=== PATIENT | female | born 1960 | race Caucasian/White ===

== ENCOUNTER 2016-10-11 11:21 | Emergency (ER) | payer BC ==
[~2016-10-11] VITALS: Ht 157.5 cm; Wt 58.2 kg
[~2016-10-11 11:21] MED LIST: ASPIR-TRIN325 M1 PO; AUGMENTIN500 MG PO; Azor 10/40 mg PO; BENICAR20 MG PO; BLOOD PRESSURE MED; BYSTOLIC5 MG PO; Benicar PO; CYMBALTA30 MG PO; DAILY VITAMIN1 EAC4 PO; DAILY VITAMIN1 EAC8 PO; DURAGESIC12 MICROGR; DURAGESIC12 MICROGR TD; Dilaudid PO; ENDOCET 5-3251 EACH PO; FIORICET; Habitrol,Nicoderm CQ TD; LUNESTA PO; LYRICA100 MG; LYRICA100 MG PO; Librium PO; Lunesta PO; NEURONTIN100 MG PO; NEXIUM40 MG PO; NIFEDICAL XL30 MG; PEPCID PO; PLAVIX75 MG PO; PREDNISONE10 MG PO; PRILOSEC20 MG PO; PROMETHAZINE HC25 M1 PO; PROTONIX40 MG PO; PROVENTIL HFA6.7 GM IH; Percocet 5/325,Endoc PO; Percocet 7.5/325,End PO; Prevacid PO; Prilosec PO; Procardia XL,Adalat PO; Protonix PO; ROBITUSSIN AC,T10 ML PO; THERAGRAN1 TABLET PO; THIAMINE,VITAM100 MG PO; Thiamine,Vitamin B1 PO; VITAMIN B-1100 MG PO; [UNRECOGNIZED DRUG - REMARK]
[2016-10-11 12:24] LABS: HEMATOCRIT 39.4 % (36.0-46.0); MCH 31.8 PG (29.0-34.0); MCHC 33.2 G/DL (30.0-36.0); MCV 95.6 FL (83-99); MEAN PLAT.VOLUME 9.8 uM^3 (9.5-12.4); PLATELET COUNT 193 K/uL (156-360); RBC DIS.WIDTH-CV 13.5 % (11.8-14.6); RBC DIS.WIDTH-SD 47.2 % (39-53); RED BLOOD COUNT 4.12 M/uL (3.80-5.20); WHITE BLOOD COUNT 6.4 K/uL (4.1-10.2)
[2016-10-11 12:40] LABS: CHLORIDE 110 mEq/L (99-109); POTASSIUM 3.2 mEq/L (3.7-5.4); SODIUM 139 mEq/L (136-147)
[2016-10-11 12:41] LABS: GLUCOSE 94 mg/dL (70-99)
[2016-10-11 12:43] LABS: ANION GAP 12 MEQ/L (2-14)
[2016-10-11 12:45] LABS: GFR ESTIMATE (CALCULATED) > 59 mL/min/
[2016-10-11 12:46] LABS: UREA NITROGEN (BUN) 21 mg/dL (9-23)
[2016-10-11 12:47] LABS: TROP-I INTERPRETATION NEGATIVE; TROPONIN-I < 0.01 ng/mL (0.0-0.30)
[2016-10-11 13:31] LABS: ALKALINE PHOSPHATASE 79 IU/L (3-129)
[2016-10-11 13:34] LABS: LIPASE 85 U/L (1.0-51.0)
[2016-10-11] MEDS ORDERED: DOXYCYCLINE HY100 M3 PO (13:54)
[2016-10-11 15:19] VITALS: BP 130/90
[2016-10-11] MEDS ORDERED: PROMETHAZINE HC25 M1 PO (22:35)
[2016-10-12] MEDS ORDERED: PROMETHAZINE HC25 M1 PO (18:29)
== END 2016-10-11 14:59 | disposition home or self-care (01) ==
LOC: EME 11:21
DX: J44.0 Chronic obstructive pulmonary disease with (acute) lower respiratory infection (principal); J20.9 Acute bronchitis, unspecified; A69.20 Lyme disease, unspecified; I10 Essential (primary) hypertension; K21.9 Gastro-esophageal reflux disease without esophagitis; Z86.73 Personal history of transient ischemic attack (TIA), and cerebral infarction without residual deficits; F17.200 Nicotine dependence, unspecified, uncomplicated
CPT/HCPCS: 71020; 80048; 83690; 84075; 84450; 84460; 84484; 85027; 93005; 99281; 99285

== ENCOUNTER 2016-10-11 19:40 | Emergency (ER) | payer BC ==
[~2016-10-11] VITALS: Ht 157.5 cm; Wt 57.3 kg
[~2016-10-11 19:40] MED LIST changes: +DOXYCYCLINE HY100 M3 PO
[2016-10-11] MEDS ORDERED: PROMETHAZINE HC25 M1 PO (22:35)
[2016-10-11 22:48] VITALS: BP 125/97
[2016-10-12] MEDS ORDERED: PROMETHAZINE HC25 M1 PO (18:29)
== END 2016-10-11 22:49 | disposition home or self-care (01) ==
LOC: EME 19:40
DX: R11.2 Nausea with vomiting, unspecified (principal); A69.20 Lyme disease, unspecified; I10 Essential (primary) hypertension; J44.9 Chronic obstructive pulmonary disease, unspecified; K21.9 Gastro-esophageal reflux disease without esophagitis; I73.00 Raynaud's syndrome without gangrene; Z86.73 Personal history of transient ischemic attack (TIA), and cerebral infarction without residual deficits; F17.200 Nicotine dependence, unspecified, uncomplicated
CPT/HCPCS: 99281; 99284; J2550

== ENCOUNTER 2016-10-12 07:53 | Observation (INO) | payer BC ==
[~2016-10-12] VITALS: Ht 152.4 cm; Wt 58.0 kg
[2016-10-12 08:50] LABS: MCH 32.1 PG (29.0-34.0); MCHC 33.9 G/DL (30.0-36.0); MCV 94.7 FL (83-99); MEAN PLAT.VOLUME 10.2 uM^3 (9.5-12.4); PLATELET COUNT 212 K/uL (156-360); RBC DIS.WIDTH-CV 13.5 % (11.8-14.6); RBC DIS.WIDTH-SD 46.8 % (39-53); RED BLOOD COUNT 4.33 M/uL (3.80-5.20); WHITE BLOOD COUNT 8.4 K/uL (4.1-10.2)
[2016-10-12 09:04] LABS: CHLORIDE 100 mEq/L (99-109); POTASSIUM 3.8 mEq/L (3.7-5.4); SODIUM 139 mEq/L (136-147)
[2016-10-12 09:06] LABS: GLUCOSE 122 mg/dL (70-99); TROP-I INTERPRETATION NEGATIVE; TROPONIN-I < 0.01 ng/mL (0.0-0.30)
[2016-10-12 09:08] LABS: ANION GAP 21 MEQ/L (2-14)
[2016-10-12 09:10] LABS: GFR ESTIMATE (CALCULATED) 55 mL/min/
[2016-10-12 09:11] LABS: UREA NITROGEN (BUN) 24 mg/dL (9-23)
[2016-10-12 10:53] LABS: LIPASE 136 U/L (1.0-51.0)
[2016-10-12 11:02] VITALS: BP 159/92
[2016-10-12 15:40] VITALS: BP 115/74
[2016-10-12 15:40] LABS: TROP-I INTERPRETATION NEGATIVE; TROPONIN-I 0.01 ng/mL (0.0-0.30)
[2016-10-12 16:51] VITALS: BP 109/92
[2016-10-12 16:56] VITALS: BP 109/92
[2016-10-12] MEDS ORDERED: PROMETHAZINE HC25 M1 PO (18:29)
[2016-10-12 18:41] VITALS: BP 118/70
[2016-10-12 21:30] LABS: TROP-I INTERPRETATION NEGATIVE; TROPONIN-I 0.01 ng/mL (0.0-0.30)
[2016-10-12 23:49] VITALS: BP 149/91
[2016-10-13 03:18] VITALS: BP 134/88
[2016-10-13 06:20] LABS: ANION GAP 12 MEQ/L (2-14); CHLORIDE 98 MEQ/L (99-109); GFR ESTIMATE (CALCULATED) > 59 mL/min/; GLUCOSE 102 mg/dL (70-99); POTASSIUM 2.7 MEQ/L (3.7-5.4); SAMPLE HEMOLYSIS CHECK 0; SAMPLE ICTERIC CHECK 0; SAMPLE LIPEMIA CHECK 0; SODIUM 137 MEQ/L (136-147); UREA NITROGEN (BUN) 10 mg/dL (9-23)
[2016-10-13 06:27] VITALS: BP 161/102
[2016-10-13 10:27] LABS: MAGNESIUM 1.1 mg/dl (1.3-2.7)
[2016-10-13 10:31] VITALS: BP 121/75
[2016-10-13] MEDS ORDERED: PREDNISONE20 MG PO (11:19)
[2016-10-13] MEDS ORDERED: BYSTOLIC5 MG PO (11:20)
[2016-10-13] MEDS ORDERED: PROVENTIL HFA6.7 GM IH (11:22)
[2016-10-13] MEDS ORDERED: LIPITOR40 MG PO (11:50)
== END 2016-10-13 12:49 | disposition home or self-care (01) ==
LOC: EME 07:53 → EDOF 10:11 → 5WEST 10:11 → EDOF 10:11 → 5WEST 10:53
PROVIDERS: Internal Medicine
DX: R07.9 Chest pain, unspecified (principal); J44.1 Chronic obstructive pulmonary disease with (acute) exacerbation; F10.20 Alcohol dependence, uncomplicated; F17.210 Nicotine dependence, cigarettes, uncomplicated; I10 Essential (primary) hypertension; K21.9 Gastro-esophageal reflux disease without esophagitis; Z86.73 Personal history of transient ischemic attack (TIA), and cerebral infarction without residual deficits; R00.0 Tachycardia, unspecified; R10.13 Epigastric pain; R11.2 Nausea with vomiting, unspecified
CPT/HCPCS: 71020; 71275; 80048; 83690; 83735; 84484; 85027; 93005; 94640; 99281; 99284; C9113; G0378; J2405; J2765; J2930; J7030; J7042

== ENCOUNTER 2017-01-07 15:30 | Inpatient (IN) | payer BC ==
[~2017-01-07 15:30] MED LIST changes: +LIPITOR40 MG PO; +PREDNISONE20 MG PO
[2017-01-07 18:33] VITALS: BP 98/57
[2017-01-07 19:35] LABS: HEMATOCRIT 32.5 % (36.0-46.0); MCH 33.1 PG (29.0-34.0); MCHC 31.7 G/DL (30.0-36.0); MCV 104.5 FL (83-99); MEAN PLAT.VOLUME 10.1 uM^3 (9.5-12.4); PLATELET COUNT 188 K/uL (156-360); RBC DIS.WIDTH-CV 15.7 % (11.8-14.6); RBC DIS.WIDTH-SD 60.4 % (39-53); RED BLOOD COUNT 3.11 M/uL (3.80-5.20); WHITE BLOOD COUNT 5.9 K/uL (4.1-10.2)
[2017-01-07 19:40] LABS: ADD MIUA? NO; BILIRUBIN NEGATIVE; BLOOD NEGATIVE; COLOR YELLOW ((YELLOW)); GLUCOSE (STRIP) NEGATIVE; KETONES NEGATIVE; LEUKOCYTES NEGATIVE; NITRITE NEGATIVE; PROTEIN (STRIP) NEGATIVE; SPECIFIC GRAVITY 1.021 (1.000-1.030); UCUL ADDED? NO; UROBILINOGEN 0.2 MG/DL (0.2-1.0)
[2017-01-07 21:40] LABS: ALKALINE PHOSPHATASE 86 IU/L (3-129); ANION GAP 8 MEQ/L (2-14); CHLORIDE 112 MEQ/L (99-109); GFR ESTIMATE (CALCULATED) 38 mL/min/; GLUCOSE 107 mg/dL (70-99); POTASSIUM 4.3 MEQ/L (3.7-5.4); SAMPLE HEMOLYSIS CHECK 0; SAMPLE ICTERIC CHECK 0; SAMPLE LIPEMIA CHECK 0; SODIUM 137 MEQ/L (136-147); TOTAL BILIRUBIN 0.3 MG/DL (0.0-1.0); UREA NITROGEN (BUN) 29 mg/dL (9-23)
[2017-01-07 23:27] VITALS: BP 100/55
[2017-01-08 03:47] VITALS: BP 105/71
[2017-01-08 06:10] LABS: HEMATOCRIT 31.6 % (36.0-46.0); MCH 32.6 PG (29.0-34.0); MCHC 31.3 G/DL (30.0-36.0); MCV 103.9 FL (83-99); PLATELET COUNT 150 K/uL (156-360); RBC DIS.WIDTH-CV 15.7 % (11.8-14.6); RBC DIS.WIDTH-SD 60.1 % (39-53); RED BLOOD COUNT 3.04 M/uL (3.80-5.20); WHITE BLOOD COUNT 3.7 K/uL (4.1-10.2)
[2017-01-08 06:36] LABS: ALKALINE PHOSPHATASE 79 IU/L (3-129); AMYLASE 65 IU/L (1-118); ANION GAP 9 MEQ/L (2-14); CHLORIDE 116 MEQ/L (99-109); GFR ESTIMATE (CALCULATED) 45 mL/min/; GLUCOSE 120 mg/dL (70-99); LIPASE 224 U/L (1.0-51.0); POTASSIUM 4.2 MEQ/L (3.7-5.4); SAMPLE HEMOLYSIS CHECK 0; SAMPLE ICTERIC CHECK 0; SAMPLE LIPEMIA CHECK 0; SODIUM 140 MEQ/L (136-147); TOTAL BILIRUBIN 0.3 MG/DL (0.0-1.0); UREA NITROGEN (BUN) 27 mg/dL (9-23)
[2017-01-08 07:14] VITALS: BP 99/68
[2017-01-08 15:34] VITALS: BP 101/65
[2017-01-08 21:53] VITALS: BP 99/60
[2017-01-09 07:40] VITALS: BP 130/84
[2017-01-09 15:30] VITALS: BP 123/83
[2017-01-09 23:31] VITALS: BP 111/62
[2017-01-10 07:30] VITALS: BP 129/76
[2017-01-10 07:41] LABS: HEMATOCRIT 29.8 % (36.0-46.0); MCH 33.1 PG (29.0-34.0); MCHC 31.9 G/DL (30.0-36.0); MCV 103.8 FL (83-99); MEAN PLAT.VOLUME 10.7 uM^3 (9.5-12.4); PLATELET COUNT 136 K/uL (156-360); RBC DIS.WIDTH-CV 15.2 % (11.8-14.6); RBC DIS.WIDTH-SD 57.7 % (39-53); RED BLOOD COUNT 2.87 M/uL (3.80-5.20); WHITE BLOOD COUNT 4.3 K/uL (4.1-10.2)
[2017-01-10 08:15] LABS: ALKALINE PHOSPHATASE 74 IU/L (3-129); AMYLASE 65 IU/L (1-118); ANION GAP 7 MEQ/L (2-14); CHLORIDE 115 MEQ/L (99-109); GLUCOSE 103 mg/dL (70-99); LIPASE 174 U/L (1.0-51.0); POTASSIUM 4.5 MEQ/L (3.7-5.4); SAMPLE HEMOLYSIS CHECK 0; SAMPLE ICTERIC CHECK 0; SAMPLE LIPEMIA CHECK 0; SODIUM 143 MEQ/L (136-147)
[2017-01-10 08:26] LABS: GFR ESTIMATE (CALCULATED) > 59 mL/min/; TOTAL BILIRUBIN 0.4 MG/DL (0.0-1.0); UREA NITROGEN (BUN) 7 mg/dL (9-23)
[2017-01-10 15:20] VITALS: BP 142/70
[2017-01-11] VITALS: BP 143/88
[2017-01-11 06:32] LABS: EOSINOPHIL (%) 2.2 % (0-5); EOSINOPHIL COUNT 0.1 K/uL (0-0.3); HEMATOCRIT 30.7 % (36.0-46.0); IMMATURE GRANULOCYTE (%) 0.3 % (0.0-0.7); INSTRUMENT ABS NEUTROPHIL CT 2.1 K/uL; LYMPHOCYTE COUNT 0.9 K/uL (1.0-2.8); MCH 32.3 PG (29.0-34.0); MCHC 31.6 G/DL (30.0-36.0); MCV 102.3 FL (83-99); MEAN PLAT.VOLUME 10.3 uM^3 (9.5-12.4); MONOCYTE (%) 16.1 % (3-12); MONOCYTE COUNT 0.6 K/uL (0-0.8); NEUTROPHIL COUNT 2.1 K/uL (1.8-6.4); PLATELET COUNT 154 K/uL (156-360); RBC DIS.WIDTH-CV 14.9 % (11.8-14.6); RBC DIS.WIDTH-SD 56.9 % (39-53); WHITE BLOOD COUNT 3.7 K/uL (4.1-10.2)
[2017-01-11 06:57] LABS: ANION GAP 5 MEQ/L (2-14); CHLORIDE 113 MEQ/L (99-109); GFR ESTIMATE (CALCULATED) > 59 mL/min/; GLUCOSE 104 mg/dL (70-99); POTASSIUM 3.8 MEQ/L (3.7-5.4); SAMPLE HEMOLYSIS CHECK 0; SAMPLE ICTERIC CHECK 0; SAMPLE LIPEMIA CHECK 0; SODIUM 140 MEQ/L (136-147); UREA NITROGEN (BUN) 5 mg/dL (9-23)
[2017-01-11 07:15] VITALS: BP 162/72
[2017-01-11] MEDS ORDERED: SUCRALFATE1 GM PO (11:09)
== END 2017-01-11 11:25 | disposition home or self-care (01) | DRG 690 ==
LOC: ENRESERV 15:30 → 2EAST 15:30 → ENRESERV 16:00 → 2EAST 18:01
PROVIDERS: Family Medicine; Internal Medicine
DX: N12 Tubulo-interstitial nephritis, not specified as acute or chronic (principal); N17.9 Acute kidney failure, unspecified; E86.0 Dehydration; K52.9 Noninfective gastroenteritis and colitis, unspecified; J44.9 Chronic obstructive pulmonary disease, unspecified; K21.9 Gastro-esophageal reflux disease without esophagitis; E11.9 Type 2 diabetes mellitus without complications; E78.5 Hyperlipidemia, unspecified; I10 Essential (primary) hypertension; K26.9 Duodenal ulcer, unspecified as acute or chronic, without hemorrhage or perforation; K29.70 Gastritis, unspecified, without bleeding; R13.10 Dysphagia, unspecified; F17.200 Nicotine dependence, unspecified, uncomplicated; E66.9 Obesity, unspecified; Z68.21 Body mass index [BMI] 21.0-21.9, adult
CPT/HCPCS: 71010; 74177; 80048; 80053; 81003; 82150; 82607; 82746; 83690; 85025; 85027; 93005; 99202; C9113; J0692; J2405; J2765; J7042; J7050

== ENCOUNTER 2017-02-02 05:47 | Inpatient (IN) | payer BC ==
[~2017-02-02] VITALS: Ht 160 cm; Wt 54.2 kg
[~2017-02-02 05:47] MED LIST changes: +SUCRALFATE1 GM PO
[2017-02-02 06:53] LABS: CHLORIDE 94 mEq/L (99-109); POTASSIUM 4.3 mEq/L (3.7-5.4); SODIUM 134 mEq/L (136-147)
[2017-02-02 06:55] LABS: GLUCOSE 179 mg/dL (70-99)
[2017-02-02 06:56] LABS: ANION GAP 22 MEQ/L (2-14)
[2017-02-02 06:57] LABS: TOTAL BILIRUBIN 0.5 mg/dL (0.0-1.0)
[2017-02-02 06:59] LABS: ALKALINE PHOSPHATASE 94 IU/L (3-129); GFR ESTIMATE (CALCULATED) 9 mL/min/
[2017-02-02 07:00] LABS: UREA NITROGEN (BUN) 64 mg/dL (9-23)
[2017-02-02 07:02] LABS: LIPASE 171 U/L (1.0-51.0)
[2017-02-02 07:04] LABS: EOSINOPHIL (%) 0.1 % (0-5); HEMATOCRIT 39.6 % (36.0-46.0); IMMATURE GRANULOCYTE (%) 0.3 % (0.0-0.7); INSTRUMENT ABS NEUTROPHIL CT 10.1 K/uL; LYMPHOCYTE COUNT 1.3 K/uL (1.0-2.8); MCH 32.6 PG (29.0-34.0); MCHC 32.8 G/DL (30.0-36.0); MCV 99.2 FL (83-99); MONOCYTE (%) 5.6 % (3-12); MONOCYTE COUNT 0.7 K/uL (0-0.8); NEUTROPHIL (%) 82.8 % (45-76); NEUTROPHIL COUNT 10.1 K/uL (1.8-6.4); PLATELET COUNT 225 K/uL (156-360); RBC DIS.WIDTH-CV 13.8 % (11.8-14.6); RBC DIS.WIDTH-SD 50.9 % (39-53); RED BLOOD COUNT 3.99 M/uL (3.80-5.20); WHITE BLOOD COUNT 12.3 K/uL (4.1-10.2)
[2017-02-02] MEDS ORDERED: CYANOCOBALAM1000 MCG PO (09:30)
[2017-02-02] MEDS ORDERED: POTASSIUM-9999 MG PO (09:30)
[2017-02-02] MEDS ORDERED: TRAMADOL HCL50 MG PO (09:31)
[2017-02-02] MEDS ORDERED: PHENERGAN-CODE120 ML PO (09:31)
[2017-02-02] MEDS ORDERED: PLAVIX75 MG PO (09:33)
[2017-02-02 10:34] LABS: ADD MIUA? YES; BILIRUBIN NEGATIVE; BLOOD SMALL; COLOR YELLOW ((YELLOW)); GLUCOSE (STRIP) NEGATIVE; KETONES 5; LEUKOCYTES NEGATIVE; NITRITE NEGATIVE; PROTEIN (STRIP) 100; SPECIFIC GRAVITY 1.023 (1.000-1.030); UROBILINOGEN 0.2 MG/DL (0.2-1.0)
[2017-02-02 10:41] LABS: BACTERIA NONE SEEN /HPF; EPITHELIAL CELLS RARE /HPF; MUCUS TRACE /LPF; RED BLOOD CELLS 0-5 /HPF (0-5); UCUL ADDED? NO; UNCLASSIFIED CASTS 0-5 /LPF; WHITE BLOOD CELLS 0-5 /HPF (0-5)
[2017-02-02 11:30] VITALS: BP 128/89
[2017-02-02 11:59] VITALS: BP 1258/89
[2017-02-02 15:53] VITALS: BP 134/79
[2017-02-02 19:45] LABS: ADD MIUA? YES; BILIRUBIN NEGATIVE; BLOOD SMALL; COLOR YELLOW ((YELLOW)); GLUCOSE (STRIP) NEGATIVE; KETONES NEGATIVE; LEUKOCYTES NEGATIVE; NITRITE NEGATIVE; PROTEIN (STRIP) NEGATIVE; SPECIFIC GRAVITY 1.011 (1.000-1.030); UROBILINOGEN 0.2 MG/DL (0.2-1.0)
[2017-02-02 19:46] VITALS: BP 151/84
[2017-02-02 20:10] LABS: BACTERIA RARE /HPF; EPITHELIAL CELLS RARE /HPF; MUCUS TRACE /LPF; RED BLOOD CELLS 0-5 /HPF (0-5); UCUL ADDED? NO; WHITE BLOOD CELLS 0-5 /HPF (0-5)
[2017-02-03] VITALS: BP 135/89
[2017-02-03 04:29] VITALS: BP 119/78
[2017-02-03 07:06] LABS: HEMATOCRIT 31.7 % (36.0-46.0); MCH 32.4 PG (29.0-34.0); MCHC 32.2 G/DL (30.0-36.0); MCV 100.6 FL (83-99); RBC DIS.WIDTH-CV 13.7 % (11.8-14.6); RBC DIS.WIDTH-SD 50.7 % (39-53); WHITE BLOOD COUNT 7.9 K/uL (4.1-10.2)
[2017-02-03 07:16] LABS: AMYLASE 51 IU/L (1-118)
[2017-02-03 07:21] LABS: RED BLOOD COUNT 3.15 M/uL (3.80-5.20)
[2017-02-03 07:24] LABS: MEAN PLAT.VOLUME 10.4 uM^3 (9.5-12.4); PLAT.SUFFICIENCY ADEQUATE; PLATELET COUNT 146 K/uL (156-360)
[2017-02-03 07:41] VITALS: BP 164/83
[2017-02-03 10:33] LABS: ANION GAP 13 MEQ/L (2-14); CHLORIDE 106 MEQ/L (99-109); GFR ESTIMATE (CALCULATED) 49 mL/min/; GLUCOSE 128 mg/dL (70-99); POTASSIUM 3.5 MEQ/L (3.7-5.4); SODIUM 140 MEQ/L (136-147)
[2017-02-03 10:34] LABS: UREA NITROGEN (BUN) 30 mg/dL (9-23)
[2017-02-03 11:19] VITALS: BP 106/62
[2017-02-03 14:54] LABS: POINT-OF-CARE METER ID UU14107333
[2017-02-03 19:14] VITALS: BP 168/97
[2017-02-03 23:09] VITALS: BP 156/98
[2017-02-04 03:46] VITALS: BP 134/92
[2017-02-04 08:44] VITALS: BP 149/96
[2017-02-04 11:52] VITALS: BP 139/91
[2017-02-04] MEDS ORDERED: AMLODIPINE BESYL5 MG PO (13:39)
[2017-02-04] MEDS ORDERED: PROTONIX40 MG PO (13:41)
[2017-02-04] MEDS ORDERED: CARAFATE100 MG/ML PO (13:42)
== END 2017-02-04 15:30 | disposition home or self-care (01) | DRG 392 ==
LOC: EME 05:47 → EDOF 09:05 → 3EAST 09:05 → ENRESERV 09:16 → 3EAST 09:48 → ENRESERV 09:51 → CANRESERV 09:51 → EDOF 09:52 → ENRESERV 09:56 → 3EAST 11:18
PROVIDERS: Emergency Medicine; Internal Medicine
DX: K29.70 Gastritis, unspecified, without bleeding (principal); K29.80 Duodenitis without bleeding; K22.10 Ulcer of esophagus without bleeding; K25.9 Gastric ulcer, unspecified as acute or chronic, without hemorrhage or perforation; K26.9 Duodenal ulcer, unspecified as acute or chronic, without hemorrhage or perforation; N17.9 Acute kidney failure, unspecified; E86.0 Dehydration; R13.10 Dysphagia, unspecified; R63.4 Abnormal weight loss; E11.9 Type 2 diabetes mellitus without complications; I10 Essential (primary) hypertension; F10.10 Alcohol abuse, uncomplicated; I73.00 Raynaud's syndrome without gangrene; J43.9 Emphysema, unspecified; K21.9 Gastro-esophageal reflux disease without esophagitis; K44.9 Diaphragmatic hernia without obstruction or gangrene; G89.29 Other chronic pain; F17.210 Nicotine dependence, cigarettes, uncomplicated; Z87.11 Personal history of peptic ulcer disease; Z86.73 Personal history of transient ischemic attack (TIA), and cerebral infarction without residual deficits
CPT/HCPCS: 71010; 74176; 80048; 80053; 81003; 82150; 82948; 83605; 83690; 85025; 85027; 87040; 88305; 88342 TC; 93005; 94640; 94640 76; 99202; 99281; 99285; C9113; J0692; J1630; J1644; J2405; J2765; J7030; J7042; J7050

== ENCOUNTER 2017-03-21 12:05 | Inpatient (IN) | payer BC ==
[~2017-03-21] VITALS: Ht 157.5 cm; Wt 52.4 kg
[~2017-03-21 12:05] MED LIST changes: +AMLODIPINE BESYL5 MG PO; +CARAFATE100 MG/ML PO; +CYANOCOBALAM1000 MCG PO; +PHENERGAN-CODE120 ML PO; +POTASSIUM-9999 MG PO; +TRAMADOL HCL50 MG PO
[2017-03-21 12:45] LABS: HEMATOCRIT 35.9 % (36.0-46.0); MCH 32.6 PG (29.0-34.0); MCHC 32.6 G/DL (30.0-36.0); MEAN PLAT.VOLUME 10.2 uM^3 (9.5-12.4); PLATELET COUNT 198 K/uL (156-360); RBC DIS.WIDTH-CV 12.1 % (11.8-14.6); RBC DIS.WIDTH-SD 45.1 % (39-53); RED BLOOD COUNT 3.59 M/uL (3.80-5.20); WHITE BLOOD COUNT 4.5 K/uL (4.1-10.2)
[2017-03-21 12:52] LABS: CHLORIDE 112 mEq/L (99-109); POTASSIUM 4.8 mEq/L (3.7-5.4); SODIUM 138 mEq/L (136-147)
[2017-03-21 12:55] LABS: GLUCOSE 148 mg/dL (70-99)
[2017-03-21 12:56] LABS: ANION GAP 11 MEQ/L (2-14)
[2017-03-21 12:57] LABS: TOTAL BILIRUBIN 0.4 mg/dL (0.0-1.0)
[2017-03-21 12:58] LABS: ALKALINE PHOSPHATASE 109 IU/L (3-129); GFR ESTIMATE (CALCULATED) 49 mL/min/
[2017-03-21 12:59] LABS: UREA NITROGEN (BUN) 21 mg/dL (9-23)
[2017-03-21 13:02] LABS: LIPASE 98 U/L (1.0-51.0)
[2017-03-21 17:26] LABS: ADD MIUA? NO; BILIRUBIN NEGATIVE; BLOOD NEGATIVE; COLOR YELLOW ((YELLOW)); GLUCOSE (STRIP) NEGATIVE; KETONES 5; LEUKOCYTES NEGATIVE; NITRITE NEGATIVE; PROTEIN (STRIP) 30; SPECIFIC GRAVITY 1.012 (1.000-1.030); UCUL ADDED? NO; UROBILINOGEN 0.2 MG/DL (0.2-1.0)
[2017-03-21 21:15] LABS: AMYLASE 108 IU/L (1-118)
[2017-03-21 23:31] VITALS: BP 167/99
[2017-03-22 03:19] VITALS: BP 148/87
[2017-03-22 08:08] VITALS: BP 121/70
[2017-03-22 11:33] VITALS: BP 112/83
[2017-03-22 16:00] VITALS: BP 109/74
[2017-03-22 23:32] VITALS: BP 105/70
[2017-03-23 05:48] LABS: HEMATOCRIT 31.1 % (36.0-46.0); MCHC 32.5 G/DL (30.0-36.0); MCV 98.4 FL (83-99); RBC DIS.WIDTH-CV 11.9 % (11.8-14.6); RBC DIS.WIDTH-SD 43.3 % (39-53); RED BLOOD COUNT 3.16 M/uL (3.80-5.20); WHITE BLOOD COUNT 3.9 K/uL (4.1-10.2)
[2017-03-23 06:05] LABS: ALKALINE PHOSPHATASE 75 IU/L (3-129); ANION GAP 10 MEQ/L (2-14); CHLORIDE 104 MEQ/L (99-109); GFR ESTIMATE (CALCULATED) > 59 mL/min/; GLUCOSE 92 mg/dL (70-99); LIPASE 80 U/L (1.0-51.0); POTASSIUM 3.6 MEQ/L (3.7-5.4); SAMPLE HEMOLYSIS CHECK 0; SAMPLE ICTERIC CHECK 0; SAMPLE LIPEMIA CHECK 0; SODIUM 138 MEQ/L (136-147); TOTAL BILIRUBIN 0.4 MG/DL (0.0-1.0); UREA NITROGEN (BUN) 12 mg/dL (9-23)
[2017-03-23 06:12] LABS: EOSINOPHIL COUNT 0.1 K/uL (0-0.3); INSTRUMENT ABS NEUTROPHIL CT 1.9 K/uL; LYMPHOCYTE COUNT 1.4 K/uL (1.0-2.8); MONOCYTE COUNT 0.6 K/uL (0-0.8); NEUTROPHIL COUNT 1.9 K/uL (1.8-6.4)
[2017-03-23 06:24] LABS: MEAN PLAT.VOLUME 10.1 uM^3 (9.5-12.4); PLAT.SUFFICIENCY DECREASED
[2017-03-23 06:25] LABS: PLATELET COUNT 133 K/uL (156-360)
[2017-03-23 07:50] VITALS: BP 139/82
[2017-03-23 17:19] VITALS: BP 133/80
[2017-03-23 23:45] VITALS: BP 123/69
[2017-03-24 06:52] VITALS: BP 102/64
[2017-03-24] MEDS ORDERED: LISINOPRIL20 MG PO (11:37)
[2017-03-24] MEDS ORDERED: ZOFRAN4 MG PO (11:37)
[2017-03-24] MEDS ORDERED: BUTALB-CAFF-AC1 EACH PO (11:38)
[2017-03-24] MEDS ORDERED: ADALAT CC 30 MG30 MG PO (11:39)
[2017-03-24] MEDS ORDERED: PREVACID30 MG PO (11:39)
[2017-03-24 15:15] VITALS: BP 108/75
[2017-03-24] MEDS ORDERED: CYANOCOBALAM1000 MCG PO (16:09)
[2017-03-24] MEDS ORDERED: PLAVIX75 MG PO (16:29)
[2017-03-24 17:48] VITALS: BP 108/75
[2017-03-24] MEDS ORDERED: PROMETHAZINE HC25 M1 PO (18:20)
== END 2017-03-24 19:30 | disposition home or self-care (01) | DRG 439 ==
LOC: EME 12:05 → 5EAST 21:02 → EDOF 21:02 → ENRESERV 21:13 → 5EAST 22:55
PROVIDERS: Internal Medicine Gastroenterology
PROC: 0DB78ZX Excision of Stomach, Pylorus, Via Natural or Artificial Opening Endoscopic, Diagnostic (ICD-10-PCS; principal; 2017-03-23)
DX: K86.1 Other chronic pancreatitis (principal); B19.10 Unspecified viral hepatitis B without hepatic coma; K26.9 Duodenal ulcer, unspecified as acute or chronic, without hemorrhage or perforation; K22.10 Ulcer of esophagus without bleeding; K25.7 Chronic gastric ulcer without hemorrhage or perforation; G89.4 Chronic pain syndrome; K29.60 Other gastritis without bleeding; J44.9 Chronic obstructive pulmonary disease, unspecified; K29.80 Duodenitis without bleeding; I10 Essential (primary) hypertension; K21.9 Gastro-esophageal reflux disease without esophagitis; K44.9 Diaphragmatic hernia without obstruction or gangrene; F17.210 Nicotine dependence, cigarettes, uncomplicated; E86.0 Dehydration; K22.4 Dyskinesia of esophagus; F32.9 Major depressive disorder, single episode, unspecified; E78.5 Hyperlipidemia, unspecified; Z87.11 Personal history of peptic ulcer disease; Z86.73 Personal history of transient ischemic attack (TIA), and cerebral infarction without residual deficits; Z87.19 Personal history of other diseases of the digestive system
CPT/HCPCS: 74022; 74177; 80053; 81003; 82150; 83605; 83690; 85025; 85027; 87040; 88305; 88342 TC; 99202; 99281; 99285; J0696; J1170; J2250; J2270; J2405; J2765; J3010; J7030; J7050; Q0169

== ENCOUNTER 2017-05-03 10:21 | Inpatient (IN) | payer BC ==
[~2017-05-03] VITALS: Ht 157.5 cm; Wt 53.2 kg
[~2017-05-03 10:21] MED LIST changes: +ADALAT CC 30 MG30 MG PO; +BUTALB-CAFF-AC1 EACH PO; +LISINOPRIL20 MG PO; +PREVACID30 MG PO; +ZOFRAN4 MG PO
[2017-05-03 12:49] LABS: BASOPHIL (%) 0.2 % (0-1); EOSINOPHIL (%) 1.4 % (0-5); EOSINOPHIL COUNT 0.1 K/uL (0-0.3); HEMATOCRIT 31.4 % (36.0-46.0); HEMOGLOBIN 9.9 G/DL (11.9-15.5); IMMATURE GRANULOCYTE (%) 0.2 % (0.0-0.7); LYMPHOCYTE (%) 11.8 % (15-42); LYMPHOCYTE COUNT 0.5 K/uL (1.0-2.8); MCH 30.9 PG (29.0-34.0); MCHC 31.5 G/DL (30.0-36.0); MCV 98.1 FL (83-99); MONOCYTE (%) 9.4 % (3-12); MONOCYTE COUNT 0.4 K/uL (0-0.8); NEUTROPHIL COUNT 3.3 K/uL (1.8-6.4); PLATELET COUNT 129 K/uL (156-360); RBC DIS.WIDTH-CV 13.3 % (11.8-14.6); RBC DIS.WIDTH-SD 47.8 % (39-53); WHITE BLOOD COUNT 4.2 K/uL (4.1-10.2)
[2017-05-03 12:57] LABS: ALBUMIN 3.7 g/dL (3.2-4.8); CHLORIDE 108 mEq/L (99-109); POTASSIUM 5.1 mEq/L (3.7-5.4); SODIUM 137 mEq/L (136-147)
[2017-05-03 12:58] LABS: MAGNESIUM 1.7 mg/dL (1.3-2.7)
[2017-05-03 13:00] LABS: GLUCOSE 80 mg/dL (70-99); TOTAL PROTEIN 6.5 g/dL (6.4-8.3)
[2017-05-03 13:01] LABS: TOTAL BILIRUBIN 0.2 mg/dL (0.0-1.0)
[2017-05-03 13:02] LABS: SERUM ETHYL ALCOHOL < 10 mg/dL
[2017-05-03 13:03] LABS: CREATININE 2.3 mg/dL (0.6-1.3); GFR ESTIMATE (CALCULATED) 23 mL/min/
[2017-05-03 13:04] LABS: ALKALINE PHOSPHATASE 127 IU/L (3-129)
[2017-05-03 13:05] LABS: AST (GOT) 22 IU/L (2-34); UREA NITROGEN (BUN) 36 mg/dL (9-23)
[2017-05-03 13:07] LABS: ACETAMINOPHEN (TYLENOL) < 10 mcg/mL (10-30); ALT (GPT) 14 IU/L (3-49); SALICYLATE < 5.0 MG/DL (15-30)
[2017-05-03 13:08] LABS: LIPASE 29 U/L (1.0-51.0)
[2017-05-03 14:50] LABS: APPEARANCE SL.HAZY ((CLEAR)); BILIRUBIN NEGATIVE; BLOOD NEGATIVE; COLOR YELLOW ((YELLOW)); GLUCOSE (STRIP) NEGATIVE; KETONES 5; LEUKOCYTES SMALL; NITRITE NEGATIVE; PROTEIN (STRIP) 30; SPECIFIC GRAVITY 1.021 (1.000-1.030); UROBILINOGEN 0.2 MG/DL (0.2-1.0)
[2017-05-03 15:02] LABS: BACTERIA NONE SEEN /HPF; EPITHELIAL CELLS 2+ /HPF; HYALINE CASTS 15-20 /LPF; MUCUS TRACE /LPF; RED BLOOD CELLS 0-5 /HPF (0-5); UCUL ADDED? NO; WHITE BLOOD CELLS 0-5 /HPF (0-5)
[2017-05-03 15:30] LABS: TROP-I INTERPRETATION NEGATIVE; TROPONIN-I 0.11 ng/mL (0.0-0.30)
[2017-05-03] MEDS ORDERED: PROTONIX40 MG PO (15:41)
[2017-05-03] MEDS ORDERED: BYSTOLIC5 MG PO (15:43)
[2017-05-03 17:32] VITALS: BP 99/65
[2017-05-03 19:15] VITALS: BP 103/59
[2017-05-04] VITALS (7 sets, daily range): BP systolic 104–170; BP diastolic 64–96
[2017-05-04 05:30] LABS: BASOPHIL (%) 0.3 % (0-1); EOSINOPHIL (%) 1.3 % (0-5); EOSINOPHIL COUNT 0.1 K/uL (0-0.3); HEMATOCRIT 32.6 % (36.0-46.0); HEMOGLOBIN 9.8 G/DL (11.9-15.5); IMMATURE GRANULOCYTE (%) 1.1 % (0.0-0.7); LYMPHOCYTE (%) 20.3 % (15-42); LYMPHOCYTE COUNT 0.8 K/uL (1.0-2.8); MCH 30.4 PG (29.0-34.0); MCHC 30.1 G/DL (30.0-36.0); MCV 101.2 FL (83-99); MONOCYTE COUNT 0.4 K/uL (0-0.8); NEUTROPHIL COUNT 2.5 K/uL (1.8-6.4); PLATELET COUNT 101 K/uL (156-360); RBC DIS.WIDTH-CV 13.5 % (11.8-14.6); RBC DIS.WIDTH-SD 50.8 % (39-53); RED BLOOD COUNT 3.22 M/uL (3.80-5.20); WHITE BLOOD COUNT 3.8 K/uL (4.1-10.2)
[2017-05-04 06:12] LABS: CHLORIDE 114 MEQ/L (99-109); GLUCOSE 78 mg/dL (70-99); SODIUM 139 MEQ/L (136-147); UREA NITROGEN (BUN) 20 mg/dL (9-23)
[2017-05-04 06:13] LABS: GFR ESTIMATE (CALCULATED) > 59 mL/min/
[2017-05-04 14:51] LABS: BASE EXCESS -8.2 mEq/L (-3 to +3); BICARBONATE 16.9 mEq/L (22-26); CARBOXY HGB 0.9 % (0-5); COMMENTS - BLOOD GASES A+C+; FI02 0.21 %; PCO2 32 mm Hg (35-45); PO2 70 mm Hg (80-100); SITE RR; TOTAL RESP RATE 16 resp/min; pH 7.33 (7.35-7.45)
[2017-05-04 20:44] LABS: UR CREATININE CONCENTRATION 21.9 MG/DL
[2017-05-05 03:30] VITALS: BP 137/69
[2017-05-05 05:41] LABS: HEMATOCRIT 26.2 % (36.0-46.0); HEMOGLOBIN 8.9 G/DL (11.9-15.5); MCV 91.3 FL (83-99); RBC DIS.WIDTH-CV 13.3 % (11.8-14.6); RBC DIS.WIDTH-SD 43.7 % (39-53); RED BLOOD COUNT 2.87 M/uL (3.80-5.20); WHITE BLOOD COUNT 2.2 K/uL (4.1-10.2)
[2017-05-05 05:49] LABS: ABS NEUTROPHIL COUNT 1.6; ANISOCYTOSIS 1+; EOSINOPHIL ABS CT 0; EOSINOPHILS 0.9 % (0-5.0); HYPOCHROMASIA 2+; LYMPHOCYTES 15.2 % (15.0-45.0); MACROCYTES 1+; MONOCYTES 11.6 % (0-9.0); PLAT.SUFFICIENCY DECREASED; PLATELET COUNT 93 K/uL (156-360); POLYCHROMASIA 1+; SEG.NEUTROPHILS 70.5 % (46.0-76.0); TARGET CELLS 1+; TEAR DROP CELLS 1+
[2017-05-05 05:58] LABS: CREATININE 0.7 MG/DL (0.6-1.3); GFR ESTIMATE (CALCULATED) > 59 mL/min/; SODIUM 140 MEQ/L (136-147); UREA NITROGEN (BUN) 8 mg/dL (9-23)
[2017-05-05 06:00] LABS: CHLORIDE 99 MEQ/L (99-109); GLUCOSE 138 mg/dL (70-99); POTASSIUM 2.7 MEQ/L (3.7-5.4)
[2017-05-05 08:00] VITALS: BP 122/85
[2017-05-05 12:00] VITALS: BP 128/78
[2017-05-05 19:00] VITALS: BP 122/82
[2017-05-05 21:28] LABS: CHLORIDE 100 MEQ/L (99-109); CREATININE 0.6 MG/DL (0.6-1.3); GFR ESTIMATE (CALCULATED) > 59 mL/min/; GLUCOSE 124 mg/dL (70-99); POTASSIUM 3.2 MEQ/L (3.7-5.4); SODIUM 140 MEQ/L (136-147); UREA NITROGEN (BUN) 5 mg/dL (9-23)
[2017-05-05 23:00] VITALS: BP 153/92
[2017-05-06 03:00] VITALS: BP 139/89
[2017-05-06 05:35] LABS: HEMATOCRIT 26.9 % (36.0-46.0); HEMOGLOBIN 9.2 G/DL (11.9-15.5); MCH 31.3 PG (29.0-34.0); MCHC 34.2 G/DL (30.0-36.0); MCV 91.5 FL (83-99); PLATELET COUNT 91 K/uL (156-360); RBC DIS.WIDTH-CV 13.1 % (11.8-14.6); RBC DIS.WIDTH-SD 43.3 % (39-53); RED BLOOD COUNT 2.94 M/uL (3.80-5.20); WHITE BLOOD COUNT 1.9 K/uL (4.1-10.2)
[2017-05-06 05:51] LABS: CHLORIDE 99 MEQ/L (99-109); CREATININE 0.6 MG/DL (0.6-1.3); GFR ESTIMATE (CALCULATED) > 59 mL/min/; GLUCOSE 114 mg/dL (70-99); MAGNESIUM 1.7 mg/dl (1.3-2.7); POTASSIUM 3.3 MEQ/L (3.7-5.4); SODIUM 139 MEQ/L (136-147); UREA NITROGEN (BUN) 4 mg/dL (9-23)
[2017-05-06 07:14] VITALS: BP 134/84
[2017-05-06 12:30] VITALS: BP 149/83
[2017-05-06 18:31] VITALS: BP 137/72
[2017-05-06 21:00] VITALS: BP 129/81
[2017-05-06 21:50] LABS: C DIFF TOXIN POSITIVE (NEGATIVE)
[2017-05-06 23:59] VITALS: BP 120/82
[2017-05-07 04:15] VITALS: BP 125/69
[2017-05-07 06:04] LABS: IRON 60 MCG/DL (35-150); TRANSFERRIN (TIBC) 228.2 mg/dL (215-380); TRANSFERRIN SATUR. 26 % (20-55)
[2017-05-07 08:00] VITALS: BP 148/74
[2017-05-07 08:55] LABS: FOLIC ACID (FOLATE) 15.3 NG/ML (5.0-22.0)
[2017-05-07 09:03] LABS: CHLORIDE 101 MEQ/L (99-109); CREATININE 0.7 MG/DL (0.6-1.3); FERRITIN 62 NG/ML (10-291); GFR ESTIMATE (CALCULATED) > 59 mL/min/; GLUCOSE 100 mg/dL (70-99); SODIUM 140 MEQ/L (136-147); THYROTROPIN (TSH) 0.56 MIU/L (0.4-5.5); UREA NITROGEN (BUN) 6 mg/dL (9-23)
[2017-05-07 09:08] LABS: POTASSIUM 4.1 MEQ/L (3.7-5.4)
[2017-05-07] MEDS ORDERED: METRONIDAZOLE500 MG PO (09:19)
[2017-05-07] MEDS ORDERED: K-DUR20 MEQ PO (09:20)
[2017-05-07] MEDS ORDERED: CREON 241 CAPSULE PO (09:21)
[2017-05-07] MEDS ORDERED: ZOLPIDEM TARTRAT5 MG PO (09:22)
[2017-05-07 11:24] LABS: HEMATOCRIT 30.3 % (36.0-46.0); HEMOGLOBIN 9.9 G/DL (11.9-15.5); MCH 30.6 PG (29.0-34.0); MCHC 32.7 G/DL (30.0-36.0); MCV 93.5 FL (83-99); RBC DIS.WIDTH-CV 13.2 % (11.8-14.6); RED BLOOD COUNT 3.24 M/uL (3.80-5.20); WHITE BLOOD COUNT 3.7 K/uL (4.1-10.2)
[2017-05-07 11:25] LABS: PLATELET COUNT 124 K/uL (156-360)
[2017-05-07 11:48] LABS: Estimated Average Glucose 117 mg/dL (70-123); HEMOGLOBIN A1c (GLYCOHEMOGLOB) 5.7 % HGB (Below 5.7)
[2017-05-07] MEDS ORDERED: FAMOTIDINE20 MG PO (14:57)
== END 2017-05-07 15:05 | disposition home or self-care (01) | DRG 682 ==
LOC: EME 10:21 → EDOF 15:30 → 4EAST 15:30 → ENRESERV 15:55 → 4EAST 17:19 → 4SOUTH 05-07 09:02 → ENRESERV 05-07 09:08 → 4EAST 05-07 10:11
PROVIDERS: Anesthesiology; Emergency Medicine; Family Medicine; Internal Medicine
DX: N17.9 Acute kidney failure, unspecified (principal); E11.10 Type 2 diabetes mellitus with ketoacidosis without coma; A04.72 Enterocolitis due to Clostridium difficile, not specified as recurrent; D61.818 Other pancytopenia; F33.9 Major depressive disorder, recurrent, unspecified; K86.1 Other chronic pancreatitis; K21.9 Gastro-esophageal reflux disease without esophagitis; I10 Essential (primary) hypertension; G89.4 Chronic pain syndrome; J44.9 Chronic obstructive pulmonary disease, unspecified; F17.210 Nicotine dependence, cigarettes, uncomplicated; E87.6 Hypokalemia; E86.0 Dehydration; E83.42 Hypomagnesemia; E78.5 Hyperlipidemia, unspecified; K44.9 Diaphragmatic hernia without obstruction or gangrene; R09.02 Hypoxemia; F10.10 Alcohol abuse, uncomplicated; G43.909 Migraine, unspecified, not intractable, without status migrainosus; I95.9 Hypotension, unspecified; K86.89 Other specified diseases of pancreas; Z87.11 Personal history of peptic ulcer disease; Z79.51 Long term (current) use of inhaled steroids
CPT/HCPCS: 36600; 70450; 71010; 74176; 80048; 80048 91; 80053; 81003; 82010; 82436; 82570; 82607; 82728; 82746; 82803; 82941 90; 83036; 83540; 83605; 83690; 83735; 84133; 84156; 84300; 84443; 84466; 84484; 85025; 85027; 86850; 86900; 86901; 87040; 87338; 87493; 93005; 99202; 99281; 99285; C9113; G0480; J2405; J2765; J3010; J3475; J3480; J7030; J7070

== ENCOUNTER 2017-06-22 13:07 | Observation (INO) | payer BC ==
[~2017-06-22] VITALS: Ht 157.5 cm; Wt 52.8 kg
[~2017-06-22 13:07] MED LIST changes: +CREON 241 CAPSULE PO; +FAMOTIDINE20 MG PO; +K-DUR20 MEQ PO; +METRONIDAZOLE500 MG PO; +ZOLPIDEM TARTRAT5 MG PO
[2017-06-22 14:21] LABS: HEMATOCRIT 33.4 % (36.0-46.0); HEMOGLOBIN 10.9 G/DL (11.9-15.5); MCH 32.1 PG (29.0-34.0); MCHC 32.6 G/DL (30.0-36.0); MCV 98.2 FL (83-99); PLATELET COUNT 180 K/uL (156-360); RBC DIS.WIDTH-CV 14.9 % (11.8-14.6); RBC DIS.WIDTH-SD 53.3 % (39-53); WHITE BLOOD COUNT 5.5 K/uL (4.1-10.2)
[2017-06-22 14:29] LABS: APPEARANCE SL.HAZY ((CLEAR)); BILIRUBIN NEGATIVE; BLOOD SMALL; COLOR YELLOW ((YELLOW)); GLUCOSE (STRIP) NEGATIVE; KETONES 20; LEUKOCYTES MODERATE; NITRITE NEGATIVE; PROTEIN (STRIP) 30; SPECIFIC GRAVITY 1.015 (1.000-1.030); UROBILINOGEN 0.2 MG/DL (0.2-1.0)
[2017-06-22 14:40] LABS: BACTERIA RARE /HPF; EPITHELIAL CELLS 2+ /HPF; HYALINE CASTS 0-5 /LPF; MUCUS TRACE /LPF; RED BLOOD CELLS 0-5 /HPF (0-5); UCUL ADDED? YES
[2017-06-22 14:49] LABS: ALBUMIN 4.3 G/DL (3.2-4.8); ALKALINE PHOSPHATASE 107 IU/L (3-129); ALT (GPT) 18 IU/L (3-49); AST (GOT) 44 IU/L (2-34); CHLORIDE 105 MEQ/L (99-109); GFR ESTIMATE (CALCULATED) > 59 mL/min/; GLUCOSE 95 mg/dL (70-99); POTASSIUM 4.7 MEQ/L (3.7-5.4); SODIUM 138 MEQ/L (136-147); TOTAL BILIRUBIN 0.4 MG/DL (0.0-1.0); TOTAL PROTEIN 7.5 G/DL (6.4-8.3); UREA NITROGEN (BUN) 28 mg/dL (9-23)
[2017-06-22 16:08] LABS: LIPASE 26 U/L (1.0-51.0)
[2017-06-22 16:32] LABS: TROP-I INTERPRETATION NEGATIVE; TROPONIN-I 0.02 ng/mL (0.0-0.30)
[2017-06-22 18:33] LABS: AMYLASE 49 IU/L (1-118); SERUM ETHYL ALCOHOL < 10 mg/dL
[2017-06-22] MEDS ORDERED: LIPITOR40 MG PO (18:33)
[2017-06-22] MEDS ORDERED: AMBIEN5 MG PO (18:35)
[2017-06-22] MEDS ORDERED: KLOR-CON M2020 MEQ PO (18:35)
[2017-06-22] MEDS ORDERED: PEPCID20 MG PO (18:36)
[2017-06-22] MEDS ORDERED: CENTRUM SILVER1 EAC3 PO (18:37)
[2017-06-22] MEDS ORDERED: ARTIFICIAL TEAR15 M1 BOTH EYES (18:37)
[2017-06-22] MEDS ORDERED: DELSYM30 MG/5 M1 PO (18:38)
[2017-06-22 20:52] VITALS: BP 131/66
[2017-06-22 23:51] VITALS: BP 142/86
[2017-06-23 05:04] VITALS: BP 127/78
[2017-06-23 08:25] VITALS: BP 128/80
[2017-06-23 11:47] LABS: HDL CHOLESTEROL 40 MG/DL (Desirable>=50); LDL CHOLESTEROL 92 mg/dL (Desirable<100); NON-HDL CHOLESTEROL 123 mg/dL (Desirable<160); TOTAL CHOLESTEROL 163 mg/dL (Desirable<200); TRIGLYCERIDES 153 MG/DL (Normal: <150)
[2017-06-23 11:52] LABS: TROP-I INTERPRETATION NEGATIVE; TROPONIN-I 0.02 ng/mL (0.0-0.30)
[2017-06-23 12:25] VITALS: BP 144/79
[2017-06-23 13:24] LABS: HEMOGLOBIN A1c (GLYCOHEMOGLOB) 4.7 % (Below 5.7)
[2017-06-23 16:34] VITALS: BP 141/82
[2017-06-23 19:40] VITALS: BP 136/90
[2017-06-23 23:22] VITALS: BP 112/73
[2017-06-24 03:41] VITALS: BP 112/76
[2017-06-24 09:21] VITALS: BP 135/92
[2017-06-24 11:16] VITALS: BP 154/82
[2017-06-24] MEDS ORDERED: DOCUSATE SODIU100 MG PO (12:44)
== END 2017-06-24 13:57 | disposition home or self-care (01) ==
LOC: EME 13:07 → 5WEST 18:31 → EDOF 18:31 → 5WEST 18:31 → EDOF 18:31 → ENRESERV 18:32 → 5WEST 20:46
PROVIDERS: Internal Medicine
DX: G45.9 Transient cerebral ischemic attack, unspecified (principal); E86.0 Dehydration; W10.9XXA Fall (on) (from) unspecified stairs and steps, initial encounter; Z87.11 Personal history of peptic ulcer disease; E87.6 Hypokalemia; N28.9 Disorder of kidney and ureter, unspecified; E78.5 Hyperlipidemia, unspecified; I10 Essential (primary) hypertension; G43.909 Migraine, unspecified, not intractable, without status migrainosus; F07.81 Postconcussional syndrome; F17.210 Nicotine dependence, cigarettes, uncomplicated; B20 Human immunodeficiency virus [HIV] disease; F10.21 Alcohol dependence, in remission; G89.4 Chronic pain syndrome; I73.00 Raynaud's syndrome without gangrene; J44.9 Chronic obstructive pulmonary disease, unspecified
CPT/HCPCS: 70450; 71046; 74177; 80053; 80061; 81003; 82140; 82150; 83036; 83690; 84484; 85027; 87086; 93005; 93880; 94640; 99202; 99281; 99285; G0378; G0480; J1650; J2405; J2765; J3010; J7030; J7042